=== PATIENT | male | born 1995 ===

== ENCOUNTER 2020-01-27 20:01 | Emergency (ER) | payer OTHER ==
[2020-01-27] MEDS ORDERED: LIDOCAINE 1% MPF 5 ML VIAL ONE (20:18)
--- NOTE | 2020-01-27 20:40 | EDPHYS ---
Physician Documentation [facility] Name: Andrew Arteaga Age: 24 yrs Sex: Male : 1995 Arrival Date: 01/27/2020 Time: 20:03 Bed 13 Private MD: ED Physician Jose Luis Carr HPI: 20:11 This 24 yrs old Male presents to ER via [employer] with complaints of la1 laceration to hand. 20:11 The patient has a laceration related to: playing. The laceration(s) is(are) located on la1 the dorsum of right hand. Onset: The symptoms/episode began/occurred just prior to arrival. Associated signs and symptoms: Pertinent positives: suspected foreign body, Pertinent negatives: deformity, heavy bleeding, loss of consciousness, numbness distal to injury. The patient has not experienced similar symptoms in the past. pt reports he was in [employer] and messing around with a friend when he hit his hand on a piece of glass. Historical: - Allergies: 20:59 No Known Allergies; fu - Immunization history:: Adult Immunizations not up to date. - Social history:: Smoking status: Patient/guardian denies using tobacco. ROS: 20:12 Constitutional: Negative for fever, chills, and weight loss, Eyes: Negative for injury, la1 pain, redness, and discharge, ENT: Negative for injury, pain, and discharge, Neck: Negative for injury, pain, and swelling, Cardiovascular: Negative for chest pain, palpitations, and edema, Respiratory: Negative for shortness of breath, cough, wheezing, and pleuritic chest pain, Abdomen/GI: Negative for abdominal pain, nausea, vomiting, diarrhea, and constipation, Back: Negative for injury and pain, : Negative for injury, bleeding, discharge, and swelling, MS/Extremity: Negative for injury and deformity. 20:12 Skin: Positive for laceration(s). Exam: 20:13 Constitutional: This is a well developed, well nourished patient who is awake, alert, la1 and in no acute distress. Head/Face: Normocephalic, atraumatic. Eyes: Pupils equal round and reactive to light, extra-ocular motions intact Chest/axilla: Normal chest wall appearance and motion. Nontender with no deformity. No lesions are appreciated. Cardiovascular: Regular rate and rhythm with a normal S1 and S2. No gallops, murmurs, or rubs. Normal PMI, no JVD. No pulse deficits. Respiratory: Lungs have equal breath sounds bilaterally, clear to auscultation Abdomen/GI: Soft, non-tender, with normal bowel sounds. Back: No spinal tenderness. No costovertebral tenderness. Full range of motion. MS/ Extremity: Pulses equal, no cyanosis. Neurovascular intact. Full, normal range of motion. 20:13 Skin: injury, laceration(s), the wound is approximately 1.5 cm(s), with a depth of 0.5 cm(s), of the dorsum of right hand. Vital Signs: 20:28 BP 116 / 67; Pulse 73; Resp 18; Temp 98.6(T); Pulse Ox 98% on R/A; Pain 5/10; fu 20:31 BP 116 / 67; Pulse 73; Resp 18; Temp 98.7; Pulse Ox 98% on R/A; Pain 4/10; fu Laceration: 20:38 Wound Repair of 1.5cm ( 0.6in ) subcutaneous laceration to dorsum of right hand. Distal la1 neuro/vascular/tendon intact. Anesthesia: Local anesthetic administered with 2.5 mls of 1% lidocaine. Wound prep: Extensive cleansing, Wound irrigation, Copious irrigation. Skin closed with 2 4-0 Prolene using simple sutures and sterile technique. Patient tolerated well. MDM: 20:04 Patient medically screened. la1 20:38 Data reviewed: vital signs, nurses notes. Test interpretation: by ED physician or la1 midlevel provider: plain radiologic studies. Counseling: I had a detailed discussion with the patient and/or guardian regarding: the historical points, exam findings, and any diagnostic results supporting the discharge/admit diagnosis, radiology results, the need for outpatient follow up, a family practitioner, to return to the emergency department if symptoms worsen or persist or if there are any questions or concerns that arise at home. 20:03 Order name: Hand Right 3 View XRAY; Complete Time: 20:44 la1 20:04 Order name: Suture Tray at Bedside; Complete Time: 20:48 la1 Administered Medications: 20:38 Drug: Lidocaine (1 %) 5 ml {Note: administered by YARN EXAMINER..} Volume: 5 ml; Route: fu Infiltration; Disposition: 01/27 02:13 Co-signature as Attending Physician, Jose Luis Carr MD I agree with the assessment and tw4 plan of care. Disposition: 01/27/20 20:39 Discharged to Home. Impression: Laceration without foreign body of right hand. - Condition is Stable. - Discharge Instructions: Laceration Care, Adult, Sutured Wound Care. - Medication Reconciliation Form, Thank You Letter form. - Follow up: Private Physician; When: 7 - 10 days; Reason: Wound Recheck, Recheck today's complaints, Re-evaluation by your physician. - Problem is new. - Symptoms have improved. Signatures: Dispatcher [employer] EDMS Dariusz Pack, BLAS-C CHANNELER INSOLE-Cla1 Misael Adams RN RN fu Wadley, Terrence, MD MD tw4 Corrections: (The following items were deleted from the chart) 21:01 20:39 01/27/2020 20:39 Discharged to Home. Impression: Laceration without foreign body fu of right hand. Condition is Stable. Forms are Medication Reconciliation Form, Thank You Letter, Antibiotic Education, Prescription Opioid Use. Follow up: Private Physician; When: 7 - 10 days; Reason: Wound Recheck, Recheck today's complaints, Re-evaluation by your physician. Problem is new. Symptoms have improved. la1
--- NOTE | 2020-01-27 20:40 | RAD REPORT ---
EXAM DESCRIPTION: RAD - Hand Right 3 View - 01/27/2020 8:23 pm CLINICAL HISTORY: PAIN Laceration COMPARISON: No comparisons FINDINGS: No fracture is evident. No radiopaque foreign body visualized.
--- NOTE | 2020-01-27 20:40 | ER ---
Nurse's Notes [facility] Name: Andrew Arteaga Age: 24 yrs Sex: Male : 1995 Arrival Date: 01/27/2020 Time: 20:03 Bed 13 Private MD: Diagnosis: Laceration without foreign body of right hand Presentation: 20:28 Chief complaint: Patient states: he was playing and hit his hand on the window. fu Lacerated wound noted to dorsal aspect of the right hand. Coronavirus screen: The patient has NOT traveled to [place] in the past 14 days. Ebola Screen: No symptoms or risks identified at this time. Initial Sepsis Screen: Does the patient meet any 2 criteria? No. Patient's initial sepsis screen is negative. Does the patient have a suspected source of infection? No. Patient's initial sepsis screen is negative. Risk Assessment: Do you want to hurt yourself or someone else? Patient reports no desire to harm self or others. 20:28 Method Of Arrival: Ambulatory fu 20:28 Acuity: THELMA 3 fu 21:00 Onset of symptoms was January 27, 2020 at 18:00. fu Historical: - Allergies: 20:59 No Known Allergies; fu - Immunization history:: Adult Immunizations not up to date. - Social history:: Smoking status: Patient/guardian denies using tobacco. Screenin:36 Abuse screen: Denies threats or abuse. Nutritional screening: No deficits noted. fu Tuberculosis screening: No symptoms or risk factors identified. Fall Risk None identified. Assessment: 20:32 General: Appears in no apparent distress. Behavior is calm, cooperative, appropriate fu for age. Pain: Complains of pain in right hand and dorsum of right hand Pain currently is 4 out of 10 on a pain scale. Pain began 1 hour ago. Neuro: Level of Consciousness is awake, alert, obeys commands, Oriented to person, place, time, situation. Cardiovascular: Denies chest pain. Respiratory: Airway is patent Respiratory effort is even, unlabored. Derm: lacerated wound to dorsal aspect of the right hand after accidentally hitting glass window. [employer] officers with patient, shackles present to both hands and feet. Vital Signs: 20:28 BP 116 / 67; Pulse 73; Resp 18; Temp 98.6(T); Pulse Ox 98% on R/A; Pain 5/10; fu 20:31 BP 116 / 67; Pulse 73; Resp 18; Temp 98.7; Pulse Ox 98% on R/A; Pain 4/10; fu ED Course: 20:03 Patient arrived in ED. la1 20:03 Darius[facility] Pack [facility]C [facility] la1 20:04 Jose Luis Carr MD is Attending Physician. la1 20:11 Misael Adams, RN is Primary Nurse. fu 20:23 Hand Right 3 View XRAY In Process Unspecified. EDMS 20:31 Triage completed. fu 20:36 Assist provider with laceration repair on dorsum of right hand using sutures. Set up fu tray. Performed by Dariusz BIRD Patient tolerated. 20:37 Patient has correct armband on for positive identification. Bed in low position. Call fu light in reach. correction officers at bedside. 21:00 Patient did not have IV access during this emergency room visit. fu Administered Medications: 20:38 Drug: Lidocaine (1 %) 5 ml {Note: administered by CORONER..} Volume: 5 ml; Route: fu Infiltration; Outcome: 20:39 Discharge ordered by . la1 20:59 Discharged to [employer] fu 20:59 Condition: stable 20:59 Discharge instructions given to patient, Instructed on discharge instructions, Demonstrated understanding of instructions, wound care. 21:01 Patient left the ED. fu Signatures: Dispatcher [employer] EDIL Dariusz Pack FNP-C CREW LEADER/CONTROL ROOM OPERATOR-Cla1 Misael Adams RN RN fu
[2020-01-27 21:12] VITALS: BP 116/67; O2SAT 98
[2020-01-27 21:14] VITALS: TEMP 98.7
== END 2020-01-27 21:01 | disposition home or self-care (01) ==
LOC: ER 20:01
PROC: 0JQJ0ZZ Repair Right Hand Subcutaneous Tissue and Fascia, Open Approach (ICD-10-PCS; principal; 2020-01-27)
DX: S61.411A Laceration without foreign body of right hand, initial encounter (principal); W22.8XXA Striking against or struck by other objects, initial encounter; Y93.89 Activity, other specified; Y92.9 Unspecified place or not applicable
CPT/HCPCS: 99283